=== PATIENT | male | born 1960 | race Caucasian/White ===

== ENCOUNTER 2018-07-17 09:32 | Emergency (ER) | payer OTHER ==
[~2018-07-17] VITALS: Ht 175.3 cm; Wt 93.0 kg
[2018-07-17] MEDS ORDERED: LOSARTAN-HCTZ1 EAC2 (09:44)
[2018-07-17] MEDS ORDERED: TOPROL XL100 M1 (09:46)
[2018-07-17] MEDS ORDERED: ATORVASTATIN CA10 MG (09:46)
[2018-07-17] MEDS ORDERED: NORVASC5 MG (09:46)
[2018-07-17] MEDS ORDERED: METRONIDAZOLE500 MG PO (16:12)
[2018-07-17] MEDS ORDERED: CIPRO500 MG PO (16:12)
[2018-07-17] MEDS ORDERED: INTESTINEX680 M1 PO (16:12)
[2018-07-17] MEDS ORDERED: LEVSIN/SL0.125 MG PO (16:12)
== END 2018-07-17 21:03 ==
LOC: ER 09:32
DX: K52.89 Other specified noninfective gastroenteritis and colitis (principal); E86.0 Dehydration; E87.6 Hypokalemia